=== PATIENT | male | born 1995 | race African-American/Black ===

== ENCOUNTER 2018-11-04 09:27 | Emergency (ER) | payer MEDICAID ==
[~2018-11-04] VITALS: Ht 170.2 cm; Wt 77.0 kg
[2018-11-04] MEDS ORDERED: CEFTRIAXONE SODIUM 250 MG/VIAL IM ONE (10:15)
[2018-11-04] MEDS ORDERED: AZITHROMYCIN 500 MG TABLET PO ONE (10:15)
[2018-11-04] MEDS ORDERED: LIDOCAINE HCL/PF 1% 10 MG/ML 5ML VIAL IJ NR (10:30)
[2018-11-04] MEDS ORDERED: LIDOCAINE HCL/PF 1% 2ML VIAL INFIL ONE (10:30)
[2018-11-04 11:02] VITALS: BP 135/76
[2018-11-08 04:13] LABS: CHLAMYDIA TRACHOMATIS NAA Negative (Negative); NEISSERIA GONORRHOEAE NAA Negative (Negative)
== END 2018-11-04 10:50 | disposition home or self-care (01) ==
LOC: ER 09:27
DX: Z20.2 Contact with and (suspected) exposure to infections with a predominantly sexual mode of transmission (principal); B35.6 Tinea cruris; B35.3 Tinea pedis; R03.0 Elevated blood-pressure reading, without diagnosis of hypertension
CPT/HCPCS: 87491; 87591; 96372; 99283; J0696; J3490

== ENCOUNTER 2020-01-27 12:16 | Emergency (ER) | payer MEDICAID ==
[~2020-01-27] VITALS: Ht 172.7 cm; Wt 75.0 kg
[2020-01-27 12:22] VITALS: BP 110/64
== END 2020-01-27 13:24 | disposition home or self-care (01) ==
LOC: ER 12:43
DX: K64.4 Residual hemorrhoidal skin tags (principal); K59.00 Constipation, unspecified
CPT/HCPCS: 99282